=== PATIENT | male | born 1950 ===

== ENCOUNTER 2020-01-15 13:06 | Inpatient (IN) | payer MEDICARE ==
[2020-01-15] MEDS ORDERED: NALOXONE 0.4 MG/ML 1 ML VIAL IV PRN (15:37)
[2020-01-15] MEDS ORDERED: DOCUSATE 100 MG CAP PO PRN (15:37)
[2020-01-15] MEDS ORDERED: traMADol 50 MG TAB PO PRN (15:37)
[2020-01-15] MEDS ORDERED: LORazepam 0.5 MG TAB PO PRN (15:40)
--- NOTE | 2020-01-15 15:59 | XR ---
EXAMINATION TYPE: XR chest 1V portable DATE OF EXAM: 01/15/2020 COMPARISON: NONE HISTORY: chf TECHNIQUE: Single frontal view of the chest is obtained. FINDINGS: Heart is mildly prominent and there is bilateral subsegmental consolidation with tiny effu sions. Mild central interstitial pattern with no pneumothorax. IMPRESSION: Basilar atelectasis or infiltrate correlate clinically. Mild central venous congestion i n the differential diagnosis.
[2020-01-15 16:31] LABS: Basophils % (A) 0 %; Eosinophils # (A) 0.2 k/uL (0-0.7); Eosinophils % (A) 5 %; HGB 13.6 gm/dL (13.0-17.5); Lymphocytes # (A) 0.6 k/uL (1.0-4.8); Lymphocytes % (A) 14 %; MCH 34.7 pg (25.0-35.0); MCV 102.1 fL (80.0-100.0); Macrocytosis Slight; Mean Platelet Volume 8.7; Monocytes # (A) 0.4 k/uL (0-1.0); Monocytes % (A) 10 %; Neutrophils % (A) 69 %; RBC 3.92 m/uL (4.30-5.90); RDW 13.9 % (11.5-15.5); WBC 4.3 k/uL (3.8-10.6)
[2020-01-15 16:37] LABS: Platelet Count 78 k/uL (150-450)
[2020-01-15 16:39] LABS: INR 1.2 (<1.2); Prothrombin Time 12.5 sec (9.0-12.0)
[2020-01-15 16:41] LABS: ALT 25 U/L (4-49); AST 62 U/L (17-59); African American GFR (CKD) >90 (>60 ml/min/1.73 sqM); Alkaline Phosphatase 160 U/L (38-126); Amylase 61 U/L (30-110); Anion Gap 7 mmol/L; Blood Urea Nitrogen 9 mg/dL (9-20); Calcium 8.6 mg/dL (8.4-10.2); Carbon Dioxide 24 mmol/L (22-30); Chloride 105 mmol/L (98-107); Glucose 92 mg/dL (74-99); Non-African American GFR(CKD) >90 (>60 ml/min/1.73 sqM); Phosphorus 3.2 mg/dL (2.5-4.5); Potassium 3.8 mmol/L (3.5-5.1); Sodium 136 mmol/L (137-145); Total Bilirubin 3.3 mg/dL (0.2-1.3); Total Protein 6.4 g/dL (6.3-8.2)
[2020-01-15] MEDS: FUROSEMIDE 10 MG/ML 4 ML VIAL IV SCH ×2 (16:53→23:50)
[2020-01-15] MEDS: SODIUM CHLORIDE 0.9% 1,000 ML IV SCH (16:54)
[2020-01-15] MEDS: NICOTINE 14MG/24HR PATCH TRANSDERM SCH (16:55)
[2020-01-15 17:07] LABS: Glucose,Whole Blood 89 mg/dL (75-99)
[2020-01-15 17:33] LABS: Poikilocytosis (M) Present; Toxic Granulation Present
[2020-01-15 17:49] LABS: Appearance,Urine Clear (Clear); Bilirubin,Urine Negative (Negative); Blood,Urine Negative (Negative); Color,Urine Yellow; Glucose,Urine (UA) Negative (Negative); Ketones,Urine Negative (Negative); Leukocyte Esterase,Urine Negative (Negative); Nitrite,Urine Negative (Negative); PH, Urine 5.5 (5.0-8.0); Protein,Urine Negative (Negative); Specific Gravity,Urine 1.007 (1.001-1.035); Urobilinogen,Urine <2.0 mg/dL (<2.0)
[2020-01-15 17:59] LABS: Amphetamine Screen,Urine Not Detected (NotDetected); Barbiturate Screen,Urine Not Detected (NotDetected); Benzodiazepines Screen,Urine Not Detected (NotDetected); Cocaine Screen,Urine Not Detected (NotDetected); Methadone Screen, Urine Not Detected (NotDetected); Opiate Screen,Urine Not Detected (NotDetected); Oxycodone Screen, Urine Not Detected (NotDetected); Phencyclidine Screen,Urine Not Detected (NotDetected); Tricyclic Antidepressant,Urine Not Detected (NotDetected); Urn Cannabinoid Scrn Not Detected (NotDetected)
--- NOTE | 2020-01-15 18:36 | HP ---
HISTORY AND PHYSICAL DATE OF SERVICE: 01/15/2020 CHIEF COMPLAINTS: Bilateral leg swelling, abdominal distention and scrotal swelling. HISTORY OF PRESENT ILLNESS: This 69-year-old gentleman with a past medical history of multiple medical problems, including diabetes, hypertension, history of apparent chronic liver disease, history of DVT, is being followed by Victoriano Kincaid in the [facility]. He was noted to have abdominal swelling, scrotal swelling and bilateral leg swelling for the last several months on and off. Because of difficulties, the patient presented to [facility] today. The patient was also complaining of some cough and shortness of breath. The patient underwent evaluation, including CT scan of the chest and CT scan of the abdomen and pelvis. CT scan of the chest showed only small pleural effusions, but CT abdomen showed significant ascites as well as nodular liver suggestive of chronic liver disease along with splenomegaly and cholelithiasis. There is no history of any fever, rigor or chills. No history of headache, loss of consciousness, seizures. Patient reports taking excessive quantities of beer previously, but currently not much, according to him. There is no history of any fever, rigor or chills at this time. PAST MEDICAL HISTORY: History of diabetes mellitus, hypertension, history of DVT. HOME MEDICATIONS: 1. Lisinopril 20 mg p.o. daily. 2. Metformin 1000 mg p.o. daily. ALLERGIES: NONE. FAMILY HISTORY: No history of heart disease or strokes in the family. SOCIAL HISTORY: History of alcohol, as mentioned earlier. Smokes about one cigar per day. REVIEW OF SYSTEMS: ENT: No diminished hearing. No diminished vision. CARDIOVASCULAR SYSTEM: No angina, palpitations. RESPIRATORY SYSTEM: As mentioned earlier. GI: As mentioned earlier. : No dysuria or retention. NERVOUS SYSTEM: No numbness, weakness. ALLERGY/IMMUNOLOGY: No asthma, hayfever. MUSCULOSKELETAL: As mentioned earlier. HEMATOLOGY/ONCOLOGY: No history of anemia. ENDOCRINE: As mentioned earlier. CONSTITUTIONAL: As mentioned earlier. DERMATOLOGY: Negative. RHEUMATOLOGY: Negative. PSYCHIATRY: Negative. PHYSICAL EXAMINATION: Patient is alert, oriented x3. The pulse is 87, blood pressure 167/69, respiration 22, temperature normal, pulse ox normal. HEENT: Conjunctivae pale. Oral mucosa moist. NECK: Jugular venous distention at the root of the neck. No thyroid enlargement. No lymph node enlargement. CARDIOVASCULAR SYSTEM: S1, S2 muffled. No S3. No S4. RESPIRATORY SYSTEM: Breath sounds diminished at the bases. A few scattered rhonchi. No crackles. ABDOMEN: Tense, distended. Umbilicus everted. Significant ascites present. Significant scrotal edema as well as some early cellulitis and erythema also present. Some minimal tenderness. EXTREMITIES: Bilateral leg cellulitis and edema also present. NERVOUS SYSTEM: Higher functions as mentioned earlier. Moves all 4 limbs. No focal motor or sensory deficit. LYMPHATICS: No lymph node palpable in neck, axillae or groin. SKIN: No ulcer, rash, bleeding. JOINTS: No active deforming arthropathy. LABS: Labs done in [place] showed hemoglobin of 13.8 and platelets of 61, indicating thrombocytopenia. Sodium is 139, potassium 3.8. CO2 is 20. Anion gap is 11. Albumin is 2.9, alkaline phosphatase 150, AST 26, AST is 52. BUN is 80. Calcium is 8.8. Creatinine 0.6 and glucose 124. Total protein was 6. Globin was 3.1. Total bilirubin 3. ASSESSMENT: 1. Significant ascites and massive scrotal edema, possibly secondary to chronic liver disease and cirrhosis of the liver. 2. Possible chronic alcoholic liver disease; rule out other etiology of cirrhosis of the liver. 3. Thrombocytopenia. 4. Hypoalbuminemia with mild to moderate protein-calorie malnutrition. 5. Diabetes mellitus, type 2. 6. Hypertension. 7. History of nicotine dependence. 8. History of ETOH. 9. Increased total bilirubin; possibly mild alcoholic hepatitis. RECOMMENDATIONS AND DISCUSSION: In this 69-year-old gentleman who presented with multiple complex medical issues, at this time I recommend to continue current medications. I would institute diuretic therapy with Lasix and Aldactone on empiric basis. Gastroenterology consultation. The patient was previously told one time about chronic liver disease, but subsequently he was also told that his liver was normal. I would recommend liver biopsy down the line if there is any diagnostic uncertainty. Otherwise, monitor blood sugars closely. Resume the home medications. Monitor blood pressure closely. I would also recommend empiric antibiotics because of the possibility of mild scrotal cellulitis at this time. Overall prognosis guarded. Elevate the scrotum. Limit fluid intake to 1200 mL per 24 hours. Prognosis guarded because of multiple complex medical issues. Further recommendations to follow. I would also order a hepatitis panel. A copy of this dictation is being forwarded to Dr. Victoriano Kincaid, who is the primary physician. MMODL / IJN: [id number] /
[2020-01-15 19:43] LABS: Glucose,Whole Blood 142 mg/dL (75-99)
[2020-01-15] MEDS: SPIRONOLACTONE 25 MG TAB PO SCH (20:05)
[2020-01-16 01:18] LABS: Hepatitis A Antibody IgM Non-Reactive (Non-Reactive); Hepatitis B Core IgM Non-Reactive (Non-Reactive); Hepatitis B Surface Antigen Non-Reactive (Non-Reactive); Hepatitis C IgG Antibody Non-Reactive (Non-Reactive)
[2020-01-16 07:04] LABS: Glucose,Whole Blood 79 mg/dL (75-99)
[2020-01-16 08:10] LABS: Basophils % (A) 0 %; Eosinophils # (A) 0.2 k/uL (0-0.7); Eosinophils % (A) 4 %; HCT 35.3 % (39.0-53.0); HGB 12.1 gm/dL (13.0-17.5); Lymphocytes # (A) 0.5 k/uL (1.0-4.8); Lymphocytes % (A) 16 %; MCHC 34.2 g/dL (31.0-37.0); MCV 102.5 fL (80.0-100.0); Macrocytosis Slight; Mean Platelet Volume 7.2; Monocytes # (A) 0.4 k/uL (0-1.0); Monocytes % (A) 11 %; Neutrophils # (A) 2.3 k/uL (1.3-7.7); Neutrophils % (A) 67 %; RBC 3.45 m/uL (4.30-5.90); RDW 13.9 % (11.5-15.5); WBC 3.5 k/uL (3.8-10.6)
[2020-01-16 08:18] LABS: ALT 20 U/L (4-49); AST 52 U/L (17-59); African American GFR (CKD) >90 (>60 ml/min/1.73 sqM); Albumin 2.3 g/dL (3.5-5.0); Alkaline Phosphatase 121 U/L (38-126); Anion Gap 5 mmol/L; Blood Urea Nitrogen 11 mg/dL (9-20); Calcium 8.1 mg/dL (8.4-10.2); Carbon Dioxide 23 mmol/L (22-30); Chloride 107 mmol/L (98-107); Glucose 78 mg/dL (74-99); Non-African American GFR(CKD) >90 (>60 ml/min/1.73 sqM); Potassium 3.6 mmol/L (3.5-5.1); Sodium 135 mmol/L (137-145); Total Bilirubin 2.8 mg/dL (0.2-1.3); Total Protein 5.1 g/dL (6.3-8.2)
[2020-01-16 08:19] LABS: Platelet Count 61 k/uL (150-450)
[2020-01-16] MEDS: SPIRONOLACTONE 25 MG TAB PO SCH ×2 (08:31→21:13)
[2020-01-16] MEDS: PANTOPRAZOLE 40 MG TABLET PO SCH (08:31)
[2020-01-16] MEDS: MULTIVITAMINS, THERA 1 EACH TAB PO SCH (08:31)
[2020-01-16] MEDS: FUROSEMIDE 10 MG/ML 4 ML VIAL IV SCH ×2 (08:32→17:47)
[2020-01-16] MEDS: THIAMINE 100 MG TAB PO SCH (08:33)
[2020-01-16] MEDS: NICOTINE 14MG/24HR PATCH TRANSDERM SCH (08:33)
[2020-01-16] MEDS: FOLIC ACID 1 MG TAB PO SCH (08:33)
[2020-01-16 12:53] LABS: Glucose,Whole Blood 109 mg/dL (75-99)
--- NOTE | 2020-01-16 14:16 | US ---
Therapeutic and diagnostic paracentesis. DATE OF EXAM: 01/16/2020 CLINICAL HISTORY: Ascites The procedure was discussed with the patient. The risks, complications, benefits, and alternatives we re discussed and any questions were answered. Informed consent was obtained. The patient was placed s upine on the ultrasound table and prepped and draped in the usual sterile fashion. All elements of maximal barrier technique were utilized. Under ultrasound guidance, access into the right lower quadrant was obtained, via the paracentesis catheter system and direct ultrasound guidanc e. Approximately 7.1 liters of straw-colored fluid was removed. Sample sent to pathology for analysis Th e patient was stable throughout the procedure and remained stable upon discharge from Department of R adiology. IMPRESSION: Successful paracentesis under ultrasound guidance.
[2020-01-16] MEDS: SODIUM CHLORIDE 0.9% 1,000 ML IV SCH (16:32)
[2020-01-16 16:57] LABS: Glucose,Whole Blood 126 mg/dL (75-99)
--- NOTE | 2020-01-16 17:47 | PN ---
PROGRESS NOTE DATE OF SERVICE: 01/16/2020 This 69-year-old gentleman admitted with massive ascites and massive scrotal edema with significant cellulitis underwent abdominal paracentesis by Interventional Radiology yesterday; 7.1 L of straw-colored fluid was removed. The patient still has abdominal distention and ascites; slightly feeling better. Cytology is pending at this time. The initial fluid evaluations are not available at this time. The sodium is 135, hemoglobin 12.1, platelets 61, MCV 102.1. Past medical history reviewed. REVIEW OF SYSTEMS: CARDIOVASCULAR SYSTEM: No angina, palpitations. RESPIRATORY SYSTEM: As mentioned earlier. GI: As mentioned earlier. : No dysuria or retention. NERVOUS SYSTEM: No numbness, weakness. CURRENT MEDICATIONS: Reviewed. They include: 1. Rocephin 1 gram daily. 2. Colace 100 mg p.o. b.i.d. 3. Folic acid 1 mg daily. 4. Lasix 40 mg IV q.8. 5. Ativan 0.5 mg q.8. 6. Multivitamins. 7. Narcan 0.2 q.2 p.r.n. 8. Habitrol 14 daily. 9. Protonix 40 mg b.i.d. 10.Aldactone 50 mg p.o. b.i.d. 11.Vitamin B1 100 mg daily. 12.Ultram 50 mg q.6 p.r.n. PHYSICAL EXAMINATION: Patient is alert, oriented x3. Pulse 75, blood pressure 126/57, respirations 20, temperature 97.3, pulse ox 99% on room air. HEENT: Conjunctivae normal. NECK: No jugular venous distention. CARDIOVASCULAR SYSTEM: S1, S2 muffled. RESPIRATORY SYSTEM: Breath sounds diminished at the bases. A few scattered rhonchi and crackles. ABDOMEN: Soft. Diffuse swelling and ascites present. Diffuse scrotal swelling and massive scrotal edema with some surrounding redness and cellulitis also present. LEGS: Bilateral leg edema and some chronic changes also present, pitting. NERVOUS SYSTEM: No focal deficit. LABS: WBC 3.5, hemoglobin 12.1, platelets 61. Sodium 135. Bilirubin is 2.8. AST was 62 and alkaline phosphatase 160. UA noted. Hepatitis panel is negative. Drug screen is also negative. ASSESSMENT: 1. Massive ascites and massive scrotal edema, possibly secondary to chronic liver disease and cirrhosis of the liver. 2. Status post abdominal paracentesis with 7.1 liters of straw-colored fluid. 3. Possible chronic alcoholic liver disease; rule out other etiologies of cirrhosis of the liver. 4. Thrombocytopenia. 5. Mild pancytopenia, possibly related to cirrhosis. 6. Hypoalbuminemia with mild to moderate protein-calorie malnutrition. 7. Diabetes mellitus, type 2. 8. Hypertension. 9. History of nicotine dependence. 10.History of ETOH. 11.Increased total bilirubin, possibly mild alcoholic hepatitis. 12.FULL CODE. 13.Possible bilateral leg cellulitis. RECOMMENDATIONS AND DISCUSSION: In this 69-year-old gentleman who presented with multiple complex medical issues, we will monitor the patient closely, continue the current medications, continue with symptomatic treatment. Will continue with the diuresis. The intake/output charting is not available at this time. Weight-luther, the patient apparently is weighing 91.4 kg. Otherwise, prognosis is guarded because of multiple complex medical problems. Further recommendations to follow. We will also check the ascitic fluid cytology as well. See orders for details. Gastroenterology evaluation ongoing. Guarded prognosis. MMODL / IJN: [id number] /
[2020-01-16 18:11] LABS: Appearance,BF Clear; Color,BF Yellow; Nucleated Cells, Body Fluid 12 /uL; RBC, Body Fluid 121 /uL
[2020-01-16 20:03] LABS: Glucose,Whole Blood 145 mg/dL (75-99)
--- NOTE | 2020-01-16 20:46 | P.CONS ---
History of Present Illness - Reason for Consult Consult date: 01/16/20 Decompensated alcohol cirrhosis Requesting physician: Yomi Marinelli - Chief Complaint Abdominal distention - History of Present Illness 69-year-old male with a medical history significant for prior alcohol abuse, diabetes mellitus and recent diagnosis of alcoholic cirrhosis who initially presented to the hospital due to shortness of breath and abdominal distention. The patient reports increasing abdominal distention and lower extremity swelling over the past 6 months. Previously in the remote past he had been told approximately 20 years ago of possible liver disease however he had no follow-up after that. He denies any other signs or symptoms of decompensated liver disease with no encephalopathy or GI bleed and has not required paracentesis in the past. He reports increasing swelling of both his legs and abdomen. Patient has a long-standing history of heavy alcohol use with 6 beers daily for over 20 years but reports that since retiring history last. No prior endoscopic evaluation with EGD or colonoscopy. Laboratory evaluation on presentation was significant for WBC 3.5, hemoglobin 12, platelet count 61,000, INR 1.2, total bilirubin 2.8, alkaline phosphatase 121,000, AST 52 and ALT 20. Patient is status post paracentesis today with over 7 L removed. Review of Systems REVIEW OF SYSTEMS: CONSTITUTIONAL: Denies any fevers, chills, weight change or fatigue. CARDIOVASCULAR: Denies any chest pain, palpitations high or low blood pressures RESPIRATORY: Denies any shortness of breath, hemoptysis or cough. GENITOURINARY: No dysuria or hematuria. MUSCULOSKELETAL: No weakness reported. SKIN: Denies any new rashes or lesions, jaundice or pallor. PSYCHIATRIC: Denies any depression or anxiety. NEUROLOGY: Denies headache, denies any new focal deficits. EARS/NOSE/THROAT: No recent hearing change, congestion, nasal discharge or sore throat. EYES: No pain in eyes, discharge or change in vision. GASTROINTESTINAL: As per HPI. Past Medical History Past Medical History: Diabetes Mellitus, Liver Disease Additional Past Medical History / Comment(s): Hx. of bilateral lower extremity DVT. Patient was previously on Coumadin, however patient was told to stop taking Coumadin r/t low platelet count. Coumadin stopped in 2016. History of Any Multi-Drug Resistant Organisms: None Reported Past Anesthesia/Blood Transfusion Reactions: No Reported Reaction Past Psychological History: No Psychological Hx Reported Smoking Status: Never smoker Past Drug Use History: None Reported - Past Family History Mother Additional Family Medical History / Comment(s): Patient states that he was adopted and does not know any history on biological family. Medications and Allergies Home Medications Medication Instructions Recorded Confirmed Type Lisinopril 20 mg PO DAILY 01/15/20 01/15/20 History metFORMIN HCL 1,000 mg PO DAILY 01/15/20 01/15/20 History Allergies Allergy/AdvReac Type Severity Reaction Status Date / Time No Known Allergies Allergy Verified 01/15/20 16:12 Physical Exam Vitals: Vital Signs Temp Pulse Pulse Resp BP BP Pulse Ox 01/16/20 16:00 17 01/16/20 14:30 75 126/57 01/16/20 14:00 76 123/51 01/16/20 13:30 73 133/61 01/16/20 13:15 78 139/53 01/16/20 13:00 77 141/62 01/16/20 12:45 97.3 F L 70 17 162/64 99 01/16/20 12:15 75 18 154/77 98 01/16/20 12:10 76 16 156/77 98 01/16/20 12:00 74 20 148/65 97 01/16/20 11:50 71 20 139/58 96 01/16/20 11:40 72 18 150/78 97 01/16/20 11:20 81 20 157/65 96 01/16/20 11:10 77 18 158/66 96 01/16/20 11:00 82 18 158/65 95 01/16/20 10:51 80 18 160/71 97 01/16/20 10:42 97.9 F 79 20 162/68 96 01/16/20 07:00 98 F 80 22 147/68 95 01/16/20 05:00 98.4 F 91 18 131/64 93 L 01/16/20 00:00 78 18 01/15/20 21:00 97.3 F L 80 18 173/69 96 Intake and Output 01/16/20 01/16/20 01/16/20 06:59 14:59 22:59 Intake Total 0 450 Balance 0 450 Intake: Intake, IV Titration 50 Amount cefTRIAXone 1 gm In 50 Sodium Chloride 0.9% 50 ml @ 100 mls/hr IVPB Q24HR [facility] Rx#:[id number] Oral 0 400 Other: Voiding Method Toilet Toilet Urinal Urinal Weight 91.4 kg On physical examination, patient appears comfortable in no apparent distress. HEAD: Normocephalic, atraumatic. EYES: No scleral icterus. No conjunctival injection. MOUTH: No lesions, tongue midline. NECK: Trachea midline, no gross abnormalities. CHEST: Clear to auscultation with no wheezing or rhonchi appreciated. HEART: Regular rate and rhythm. ABDOMEN: Soft, obese and mildly distended. Bowel sounds are positive. No organomegaly. No guarding or rigidity. EXTREMITIES: No pedal edema. SKIN: No rashes, no jaundice. NEUROLOGIC: Alert and oriented x3, no asterixis noted. No focal deficits. Results CBC & Chem 7: 01/16/20 07:31 01/16/20 07:31 Labs: Abnormal Lab Results - Last 24 Hours (Table) 01/16/20 01/16/20 01/16/20 Range/Units 07:31 07:31 12:51 WBC 3.5 L (3.8-10.6) k/uL RBC 3.45 L (4.30-5.90) m/uL Hgb 12.1 L (13.0-17.5) gm/dL Hct 35.3 L (39.0-53.0) % MCV 102.5 H (80.0-100.0) fL Plt Count 61 L (150-450) k/uL Lymphocytes # 0.5 L (1.0-4.8) k/uL Sodium 135 L (137-145) mmol/L Creatinine 0.60 L (0.66-1.25) mg/dL POC Glucose (mg/dL) 109 H (75-99) mg/dL Calcium 8.1 L (8.4-10.2) mg/dL Total Bilirubin 2.8 H (0.2-1.3) mg/dL Total Protein 5.1 L (6.3-8.2) g/dL Albumin 2.3 L (3.5-5.0) g/dL 01/16/20 01/16/20 Range/Units 16:56 20:02 WBC (3.8-10.6) k/uL RBC (4.30-5.90) m/uL Hgb (13.0-17.5) gm/dL Hct (39.0-53.0) % MCV (80.0-100.0) fL Plt Count (150-450) k/uL Lymphocytes # (1.0-4.8) k/uL Sodium (137-145) mmol/L Creatinine (0.66-1.25) mg/dL POC Glucose (mg/dL) 126 H 145 H (75-99) mg/dL Calcium (8.4-10.2) mg/dL Total Bilirubin (0.2-1.3) mg/dL Total Protein (6.3-8.2) g/dL Albumin (3.5-5.0) g/dL Microbiology - Last 24 Hours (Table) 01/16/20 10:51 Body Fluid Culture - Preliminary Paracentesis Fluid 01/16/20 10:51 Anaerobic Culture - Preliminary Paracentesis Fluid US - abdomen: report reviewed (Ultrasound of the abdomen with over 7 L of ascites removed) Assessment and Plan (1) Decompensated hepatic cirrhosis Narrative/Plan: 69-year-old male with decompensated cirrhosis of liver secondary to alcohol abuse presenting with shortness of breath and abdominal swelling found to have ascites. He is status post removal of centimeters of a ascitic fluid. Patient denies any episodes of encephalopathy or GI bleed in the past. Fluid overload has been worsening over the past 6 months. Current Visit: Yes Status: Acute Code(s): K72.90 - HEPATIC FAILURE, UNSPECIFIED WITHOUT COMA SNOMED Code(s): 531500224 (2) Ascites of liver Current Visit: Yes Status: Acute Code(s): R18.8 - OTHER ASCITES SNOMED Code(s): 688266384 Plan: Supportive care Sodium restricted diet Aldactone and Lasix initiated Paracentesis performed with over 7 L of ascites removed and fluid studies are pending Alcohol abstinence AFP ordered Continue to monitor CBC, CMP Patient will need close follow-up after discharge for continued management Thank you for allowing us to follow with you, and participate in the care of the patient
[2020-01-16 22:08] LABS: Amylase, Fluid Source Paracentesis Fluid; Total Protein, Body Fluid 970 mg/dL
[2020-01-17] MEDS: FUROSEMIDE 10 MG/ML 4 ML VIAL IV SCH ×4 (01:18→23:02)
[2020-01-17 07:10] LABS: Glucose,Whole Blood 85 mg/dL (75-99)
[2020-01-17] MEDS: PANTOPRAZOLE 40 MG TABLET PO SCH (08:30)
[2020-01-17] MEDS: FOLIC ACID 1 MG TAB PO SCH (08:30)
[2020-01-17] MEDS: MULTIVITAMINS, THERA 1 EACH TAB PO SCH (08:30)
[2020-01-17] MEDS: LISINOPRIL 20 MG TAB PO SCH (08:30)
[2020-01-17] MEDS: THIAMINE 100 MG TAB PO SCH (08:30)
[2020-01-17] MEDS: SPIRONOLACTONE 25 MG TAB PO SCH ×2 (08:30→20:36)
[2020-01-17] MEDS: metFORMIN 500 MG TAB PO SCH (08:30)
[2020-01-17 08:38] LABS: Basophils % (A) 1 %; Eosinophils # (A) 0.1 k/uL (0-0.7); Eosinophils % (A) 4 %; HCT 36.3 % (39.0-53.0); HGB 12.3 gm/dL (13.0-17.5); Lymphocytes # (A) 0.6 k/uL (1.0-4.8); Lymphocytes % (A) 17 %; MCH 34.4 pg (25.0-35.0); MCHC 33.9 g/dL (31.0-37.0); MCV 101.6 fL (80.0-100.0); Macrocytosis Slight; Mean Platelet Volume 7.9; Monocytes # (A) 0.3 k/uL (0-1.0); Monocytes % (A) 8 %; Neutrophils # (A) 2.2 k/uL (1.3-7.7); Neutrophils % (A) 67 %; RBC 3.57 m/uL (4.30-5.90); RDW 13.8 % (11.5-15.5); WBC 3.2 k/uL (3.8-10.6)
[2020-01-17 08:40] LABS: Platelet Count 73 k/uL (150-450)
[2020-01-17 08:55] LABS: ALT 19 U/L (4-49); AST 49 U/L (17-59); African American GFR (CKD) >90 (>60 ml/min/1.73 sqM); Albumin 2.2 g/dL (3.5-5.0); Alkaline Phosphatase 116 U/L (38-126); Anion Gap 5 mmol/L; Blood Urea Nitrogen 14 mg/dL (9-20); Carbon Dioxide 24 mmol/L (22-30); Chloride 107 mmol/L (98-107); Glucose 109 mg/dL (74-99); Non-African American GFR(CKD) >90 (>60 ml/min/1.73 sqM); Potassium 3.6 mmol/L (3.5-5.1); Sodium 136 mmol/L (137-145); Total Bilirubin 2.4 mg/dL (0.2-1.3); Total Protein 5.1 g/dL (6.3-8.2)
[2020-01-17 11:19] LABS: Glucose,Whole Blood 122 mg/dL (75-99)
[2020-01-17 11:58] VITALS: RESP 17
--- NOTE | 2020-01-17 13:58 | CDI ---
Documentation Clarification Form Date: 01/17/2020 01:39:46 PM From: Malina MonteROBERTO sinha, CCDS Admit Date: 01/15/2020 03:20:00 PM Patient Name: Saul Rivera Visit Number: [id number] Discharge Date: ATTENTION: The Clinical Documentation Specialists (CDI) and [facility] Coding Staff appreciate your assistance in clarifying documentation. Please respond to the clarification below the line at the bottom and electronically sign. The CDI & [facility] Coding staff will review the response and follow-up if needed. Please note: Queries are made part of the Legal Health Record. If you have any questions, please contact the author of this message via ITS. Dr. Yomi Marinelli: Malnutrition has been documented in the Attending Progress Notes on 01/14 & 01/15 as "Hypoalbuminemia with mild to moderate protein-calorie malnutrition." History/Risk Factors: History of alcoholism, chronic liver disease (cirrhosis), DM II, DVT & Hypertension. Clinical Indicators: Presented from [facility] on 01/14 with abdominal swelling, scrotal swelling & bilateral leg swelling (for several months). Also complained of a cough & SOB. Found to have a small pleural effusion & significant ascites & nodular liver suggestive of chronic liver disease, splenomegaly & cholelithiasis; cellulitis bilateral legs & scrotum. Admission Labs: Pl Ct 78*, Na 136*, Glucose 142^, Total Bili 3.3^, AST 62^, Alk Phos 160^, Total Protein (6.4), Albumin 3.0*. BMI on admission (01/14): 29.2 No Dietitian consult this admission. Nursing physical assessment: Eating 75-100% meals, Ht 5 ft 9 in, Wt: 89.7 kg. Per the GI Consult 01/15: no weight change. Treatment: Heart healthy diet, Anaerobic wound cultures, Paracentesis, IV Rocephin, IV Lasix, Na restricted diet. In your professional opinion, can you please clarify if these findings signify one of the following conditions? Mild Protein-Calorie Malnutrition Moderate Protein-Calorie Malnutrition Other, please specify Unable to determine (Last Revision: May 2019) None MTDD
--- NOTE | 2020-01-17 15:18 | P.PN ---
Subjective Progress Note Date: 01/17/20 Principal diagnosis: This is a 69-year-old male who was recently admitted with massive ascites and massive scrotal edema with significant cellulitis and is being closely monitored. Patient underwent paracentesis yesterday with removal of approximately 7.1 L of fluid. Patient continues to have significant abdominal distention along with extreme scrotal swelling. Patient states that he feels slightly better and will need to follow-up closely with GI in the outpatient setting. GI is following. Also discussed at length about refraining from alcohol use. Instructed nursing staff to elevate the scrotum to help minimize the swelling. He shouldn't is maintained on 40 mg of IV Lasix every 8 hours and will continue at this time. Will monitor vital signs and labs closely. Current creatinine is 0.65. Currently no reports of chest pain, shortness of breath, or palpitations. Patient is afebrile. No reports of nausea or vomiting and patient is tolerating diet. Fluid cultures from paracentesis thus far negative. Patient will continue with IV Rocephin at this time. Objective - Vital Signs Vital signs: Vital Signs Temp 98.1 F 01/17/20 11:58 Pulse 71 01/17/20 11:58 Resp 17 01/17/20 11:58 BP 107/56 01/17/20 11:58 Pulse Ox 97 01/17/20 11:58 Intake & Output 01/16/20 01/17/20 01/17/20 18:59 06:59 18:59 Intake Total 450 0 530 Balance 450 0 530 Weight 91.4 kg 89.7 kg Intake: Intake, IV Titration 50 50 Amount cefTRIAXone 1 gm In 50 50 Sodium Chloride 0.9% 50 ml @ 100 mls/hr IVPB Q24HR [facility] Rx#:[id number] Oral 400 0 480 Other: Voiding Method Toilet Toilet Toilet Urinal Urinal Urinal # Voids 4 2 - Exam Gen: This is a 69-year-old male lying in bed, awake, alert and oriented 3, well-developed, well-nourished. Temp is 98.1F, pulse is 71, respirations are 17, blood pressure is 107/56, oxygen saturation is 97% on room air. HEENT: Head is atraumatic, normocephalic. Pupils equal, round. Sclerae is anicteric. NECK: Supple. No JVD. No lymphadenopathy. No thyromegaly. LUNGS: Diminished breath sounds at the bases with a few scattered rhonchi noted. No intercostal retractions. HEART: S1, S2 are muffled. ABDOMEN: Soft. Moderate distention noted. Right-sided paracentesis dressing noted that is dry and intact. Bowel sounds are present. No masses. No tend erness. Massive scrotal edema noted with some surrounding redness and cellulitis also present. EXTREMITIES: Bilateral lower extremity swelling with chronic changes present with +1 pitting edema noted. No calf tenderness. NEUROLOGICAL: Patient is awake, alert and oriented x3. Cranial nerves 2 through 12 are grossly intact. - Labs CBC & Chem 7: 01/17/20 08:17 01/17/20 08:17 Labs: Abnormal Lab Results - Last 24 Hours (Table) 01/16/20 01/16/20 01/17/20 Range/Units 16:56 20:02 08:17 WBC 3.2 L (3.8-10.6) k/uL RBC 3.57 L (4.30-5.90) m/uL Hgb 12.3 L (13.0-17.5) gm/dL Hct 36.3 L (39.0-53.0) % MCV 101.6 H (80.0-100.0) fL Plt Count 73 L (150-450) k/uL Lymphocytes # 0.6 L (1.0-4.8) k/uL Sodium (137-145) mmol/L Creatinine (0.66-1.25) mg/dL Glucose (74-99) mg/dL POC Glucose (mg/dL) 126 H 145 H (75-99) mg/dL Calcium (8.4-10.2) mg/dL Total Bilirubin (0.2-1.3) mg/dL Ammonia (<30) umol/L Total Protein (6.3-8.2) g/dL Albumin (3.5-5.0) g/dL 01/17/20 01/17/20 01/17/20 Range/Units 08:17 08:17 11:18 WBC (3.8-10.6) k/uL RBC (4.30-5.90) m/uL Hgb (13.0-17.5) gm/dL Hct (39.0-53.0) % MCV (80.0-100.0) fL Plt Count (150-450) k/uL Lymphocytes # (1.0-4.8) k/uL Sodium 136 L (137-145) mmol/L Creatinine 0.65 L (0.66-1.25) mg/dL Glucose 109 H (74-99) mg/dL POC Glucose (mg/dL) 122 H (75-99) mg/dL Calcium 8.0 L (8.4-10.2) mg/dL Total Bilirubin 2.4 H (0.2-1.3) mg/dL Ammonia 49 H (<30) umol/L Total Protein 5.1 L (6.3-8.2) g/dL Albumin 2.2 L (3.5-5.0) g/dL Microbiology - Last 24 Hours (Table) 01/16/20 10:51 Gram Stain - Preliminary Paracentesis Fluid Body Fluid Culture - Preliminary 01/16/20 10:51 Anaerobic Culture - Preliminary Paracentesis Fluid Assessment and Plan Assessment: Massive ascites and massive scrotal edema, possibly secondary to chronic liver disease and cirrhosis of the liver Status post abdominal paracentesis with 7.1 L of straw-colored fluid Possible chronic alcoholic liver disease, rule out other etiologies of cirrhosis of the liver Thrombocytopenia Mild pancytopenia, possibly related to cirrhosis Hypoalbuminemia with mild protein calorie malnutrition Diabetes mellitus, type II Hypertension History of nicotine dependence next line history of EtOH Increased total bilirubin, possibly mild alcoholic hepatitis Full code Possible bilateral leg cellulitis Recommendations and discussion: Recommend to continue current medications, management, and symptomatic treatment. To continue to elevate the scrotum to help minimize swelling. Patient to continue with IV Lasix diuresis at this time. Patient is maintained on IV Rocephin and will continue at this time. Fluid cultures thus far remain negative. Due to multiple complex medical issues, prognosis is guarded. Further recommendations to follow. Possible discharge in 24-48 hours.
[2020-01-17] MEDS: SODIUM CHLORIDE 0.9% 1,000 ML IV SCH (16:54)
[2020-01-17 17:16] LABS: Glucose,Whole Blood 126 mg/dL (75-99)
[2020-01-17 20:05] LABS: Glucose,Whole Blood 132 mg/dL (75-99)
[2020-01-18 04:54] VITALS: PULSE 71; TEMP 98
[2020-01-18] MEDS: LISINOPRIL 20 MG TAB PO SCH (09:05)
[2020-01-18] MEDS: FUROSEMIDE 10 MG/ML 4 ML VIAL IV SCH (09:05)
[2020-01-18] MEDS: metFORMIN 500 MG TAB PO SCH (09:05)
[2020-01-18] MEDS: SPIRONOLACTONE 25 MG TAB PO SCH (09:05)
[2020-01-18] MEDS: PANTOPRAZOLE 40 MG TABLET PO SCH (09:06)
[2020-01-18 09:07] VITALS: BP 128/71
[2020-01-18 09:17] LABS: Basophils % (A) 0 %; Eosinophils # (A) 0.1 k/uL (0-0.7); Eosinophils % (A) 5 %; HCT 34.5 % (39.0-53.0); HGB 11.8 gm/dL (13.0-17.5); Lymphocytes # (A) 0.4 k/uL (1.0-4.8); Lymphocytes % (A) 16 %; MCH 35.6 pg (25.0-35.0); MCHC 34.4 g/dL (31.0-37.0); MCV 103.4 fL (80.0-100.0); Macrocytosis Slight; Mean Platelet Volume 8.2; Monocytes # (A) 0.3 k/uL (0-1.0); Monocytes % (A) 10 %; Neutrophils # (A) 1.9 k/uL (1.3-7.7); Neutrophils % (A) 67 %; RBC 3.33 m/uL (4.30-5.90); WBC 2.8 k/uL (3.8-10.6)
[2020-01-18 09:23] LABS: ALT 18 U/L (4-49); AST 49 U/L (17-59); African American GFR (CKD) >90 (>60 ml/min/1.73 sqM); Albumin 2.2 g/dL (3.5-5.0); Alkaline Phosphatase 99 U/L (38-126); Anion Gap 5 mmol/L; Blood Urea Nitrogen 17 mg/dL (9-20); Calcium 7.8 mg/dL (8.4-10.2); Carbon Dioxide 27 mmol/L (22-30); Chloride 104 mmol/L (98-107); Glucose 172 mg/dL (74-99); Non-African American GFR(CKD) >90 (>60 ml/min/1.73 sqM); Potassium 3.4 mmol/L (3.5-5.1); Sodium 136 mmol/L (137-145)
[2020-01-18 09:24] LABS: Platelet Count 57 k/uL (150-450)
[2020-01-18] MEDS ORDERED: POTASSIUM CHLORIDE ER 20 MEQ TAB.ER PO STA (10:22)
[2020-01-18] MEDS: MULTIVITAMINS, THERA 1 EACH TAB PO SCH (12:26)
[2020-01-18] MEDS: FOLIC ACID 1 MG TAB PO SCH (12:26)
[2020-01-18] MEDS: THIAMINE 100 MG TAB PO SCH (12:26)
--- NOTE | 2020-01-18 14:39 | P.PN ---
Subjective Progress Note Date: 01/17/20 Principal diagnosis: Decompensated alcoholic cirrhosis Overall patient feeling better. Tolerating diet. No nausea or vomiting. No change in bowel habits. Objective - Vital Signs Vital signs: Vital Signs Temp 98.1 F 01/17/20 11:58 Pulse 71 01/17/20 11:58 Resp 17 01/17/20 11:58 BP 107/56 01/17/20 11:58 Pulse Ox 97 01/17/20 11:58 Intake & Output 01/16/20 01/17/20 01/17/20 18:59 06:59 18:59 Intake Total 450 0 530 Balance 450 0 530 Weight 91.4 kg 89.7 kg Intake: Intake, IV Titration 50 50 Amount cefTRIAXone 1 gm In 50 50 Sodium Chloride 0.9% 50 ml @ 100 mls/hr IVPB Q24HR FORMERLY [facility], 1928–1983 Rx#:[id number] Oral 400 0 480 Other: Voiding Method Toilet Toilet Toilet Urinal Urinal Urinal # Voids 4 2 - Exam On physical examination, patient appears comfortable in no apparent distress. HEAD: Normocephalic, atraumatic. EYES: No scleral icterus. No conjunctival injection. MOUTH: No lesions, tongue midline. NECK: Trachea midline, no gross abnormalities. ABDOMEN: Soft, mildly distended. Bowel sounds are positive. No organomegaly. No guarding or rigidity. EXTREMITIES: No pedal edema. SKIN: No rashes, no jaundice. NEUROLOGIC: Alert and oriented x3. No focal deficits. - Labs CBC & Chem 7: 01/18/20 08:45 01/18/20 08:45 Labs: Abnormal Lab Results - Last 24 Hours (Table) 01/16/20 01/16/20 01/17/20 Range/Units 16:56 20:02 08:17 WBC 3.2 L (3.8-10.6) k/uL RBC 3.57 L (4.30-5.90) m/uL Hgb 12.3 L (13.0-17.5) gm/dL Hct 36.3 L (39.0-53.0) % MCV 101.6 H (80.0-100.0) fL Plt Count 73 L (150-450) k/uL Lymphocytes # 0.6 L (1.0-4.8) k/uL Sodium (137-145) mmol/L Creatinine (0.66-1.25) mg/dL Glucose (74-99) mg/dL POC Glucose (mg/dL) 126 H 145 H (75-99) mg/dL Calcium (8.4-10.2) mg/dL Total Bilirubin (0.2-1.3) mg/dL Ammonia (<30) umol/L Total Protein (6.3-8.2) g/dL Albumin (3.5-5.0) g/dL 01/17/20 01/17/20 01/17/20 Range/Units 08:17 08:17 11:18 WBC (3.8-10.6) k/uL RBC (4.30-5.90) m/uL Hgb (13.0-17.5) gm/dL Hct (39.0-53.0) % MCV (80.0-100.0) fL Plt Count (150-450) k/uL Lymphocytes # (1.0-4.8) k/uL Sodium 136 L (137-145) mmol/L Creatinine 0.65 L (0.66-1.25) mg/dL Glucose 109 H (74-99) mg/dL POC Glucose (mg/dL) 122 H (75-99) mg/dL Calcium 8.0 L (8.4-10.2) mg/dL Total Bilirubin 2.4 H (0.2-1.3) mg/dL Ammonia 49 H (<30) umol/L Total Protein 5.1 L (6.3-8.2) g/dL Albumin 2.2 L (3.5-5.0) g/dL Microbiology - Last 24 Hours (Table) 01/16/20 10:51 Gram Stain - Preliminary Paracentesis Fluid Body Fluid Culture - Preliminary 01/16/20 10:51 Anaerobic Culture - Preliminary Paracentesis Fluid Assessment and Plan (1) Decompensated hepatic cirrhosis Narrative/Plan: 69-year-old male with decompensated cirrhosis of liver secondary to alcohol abuse presenting with shortness of breath and abdominal swelling found to have ascites. He is status post removal of centimeters of a ascitic fluid. Patient denies any episodes of encephalopathy or GI bleed in the past. Fluid overload has been worsening over the past 6 months. Status: Acute Code(s): K72.90 - HEPATIC FAILURE, UNSPECIFIED WITHOUT COMA SNOMED Code(s): 593092436 (2) Ascites of liver Status: Acute Code(s): R18.8 - OTHER ASCITES SNOMED Code(s): 817546765 Plan: Supportive care Sodium restricted diet Aldactone and Lasix initiated Paracentesis performed with over 7 L of ascites removed and fluid studies are pending Alcohol abstinence AFP normal Continue to monitor CBC, CMP Patient will need close follow-up after discharge for continued management Thank you for allowing us to follow with you, and participate in the care of the patient
--- NOTE | 2020-01-18 14:51 | P.DS ---
Providers Date of admission: 01/15/20 15:20 Expected date of discharge: 01/18/20 Attending physician: Yomi Marinelli Consults: 01/15/20 15:39 Consult Physician Routine Consulting Provider: Kimberly Moreno Consult Reason/Comments: cirrhosis Do you want consulting provider notified?: Yes Primary care physician: Stated None Hospital Course: Final diagnosis Massive ascites and massive scrotal edema, possibly secondary to chronic liver disease and cirrhosis of the liver Status post abdominal paracentesis with 7.1 L of straw-colored fluid Possible chronic alcoholic liver disease Thrombocytopenia Mild pancytopenia, possibly related to cirrhosis Hypoalbuminemia Diabetes mellitus, type II Hypertension History of nicotine dependence history of EtOH Increased total bilirubin, possibly mild alcoholic hepatitis Full code Possible bilateral leg cellulitis Discharge disposition Patient is being discharged in a stable condition with guarded prognosis to home and will follow-up with Victoriano Kincaid in [place] upon discharge. Patient will also be following up with Dr. Tiffanie BOLDEN in the outpatient setting as well. Patient will continue on oral Ceftin 500 mg twice daily for the next 3 days. Patient will also continue with Lasix as well as Aldactone. Total time taken is 35 minutes. History of present illness This is a 69-year-old male who was recently admitted for massive ascites along with massive scrotal edema with significant cellulitis of the surrounding tissue and was being closely monitored. During hospitalization patient underwent paracentesis with removal of approximately 7.1 L of fluid and cultures thus far have remained negative. Patient continues to have some significant abdominal distention and the scrotal swelling is slightly improved. Patient instructed to continue with Lasix and Aldactone in the outpatient setting and continue to elevate the scrotum while at rest to help alleviate some of the swelling. Discussed with the patient at length about refraining from any alcohol intake. Patient instructed to continue taking antibiotics until finished and patient will be following up with Dr. Tiffanie BOLDEN in a proximally 3 weeks. Patient will need repeat labs to monitor electrolytes. Currently patient's condition is stable and is ready for discharge today. No reports of chest pain or palpitations. No reports of shortness of breath. Patient is afebrile. No reports of nausea or vomiting and patient is tolerating diet. On exam vital signs are stable. Temp is 98F, pulse is 71, respirations are 17, blood pressure is 131/61, oxygen saturation is 94% on room air. Cardio S1, S2 are muffled. Respiratory system shows diminished breath sounds at the bases with no wheezing or rhonchi noted. Abdomen is soft, mildly distended, and nontender. Nervous system shows no focal deficits. Please refer to medication reconciliation sheet for a list of medications. Patient Condition at Discharge: Stable Plan - Discharge Summary Discharge Rx Participant: No New Discharge Prescriptions: New Spironolactone [Aldactone] 50 mg PO BID 30 Days #60 tab Cefuroxime Axetil [Ceftin] 500 mg PO BID 3 Days #6 tab Folic Acid 1 mg PO DAILY@1200 30 Days #30 tab Furosemide [Lasix] 40 mg PO BID 30 Days #60 tablet Multivitamins, Thera [Multivitamin (formulary)] 1 each PO DAILY@1200 30 Days #30 tab Thiamine [Vitamin B-1] 100 mg PO DAILY@1200 30 Days #30 tab Continue Lisinopril 20 mg PO DAILY metFORMIN HCL 1,000 mg PO DAILY Discharge Medication List Lisinopril 20 mg PO DAILY 01/15/20 [History] metFORMIN HCL 1,000 mg PO DAILY 01/15/20 [History] Cefuroxime Axetil [Ceftin] 500 mg PO BID 3 Days #6 tab 01/18/20 [Rx] Folic Acid 1 mg PO DAILY@1200 30 Days #30 tab 01/18/20 [Rx] Furosemide [Lasix] 40 mg PO BID 30 Days #60 tablet 01/18/20 [Rx] Multivitamins, Thera [Multivitamin (formulary)] 1 each PO DAILY@1200 30 Days #30 tab 01/18/20 [Rx] Spironolactone [Aldactone] 50 mg PO BID 30 Days #60 tab 01/18/20 [Rx] Thiamine [Vitamin B-1] 100 mg PO DAILY@1200 30 Days #30 tab 01/18/20 [Rx] Follow up Appointment(s)/Referral(s): Kimberly Moreno MD [STAFF PHYSICIAN] - 3 Weeks ( does not except insurance.patient will have to switch to [facility] or [facility]) Ambulatory/Diagnostic Orders: Comprehensive Metabolic Panel [LAB.AMB] Time Frame: 3 Days, Location: None Selected Patient Instructions/Handouts: Cefuroxime (By mouth), Spironolactone (By mouth), Thiamine (By mouth), Folic Acid (By mouth), Multivitamins, Adult Formula (By mouth), Ascites (DC), Paracentesis (DC) Activity/Diet/Wound Care/Special Instructions: Activity Limited until follow-up Follow-up with primary care provider upon discharge Follow-up with GI Dr. Tiffanie Marroquin in 3 weeks Refrain from any alcohol intake Continue current diet Repeat labs in 2-3 days Discharge Disposition: HOME SELF-CARE
== END 2020-01-18 13:45 | disposition home or self-care (01) | DRG 433 ==
LOC: 5NMEDONC 15:20
PROVIDERS: ADMIT Hospitalist; ATTEND Hospitalist
PROC: 0W9G3ZZ Drainage of Peritoneal Cavity, Percutaneous Approach (ICD-10-PCS; principal; 2020-01-16)
DX: K70.31 Alcoholic cirrhosis of liver with ascites (principal); D61.818 Other pancytopenia; L03.116 Cellulitis of left lower limb; L03.115 Cellulitis of right lower limb; K70.11 Alcoholic hepatitis with ascites; E11.9 Type 2 diabetes mellitus without complications; I10 Essential (primary) hypertension; F10.10 Alcohol abuse, uncomplicated; N50.89 Other specified disorders of the male genital organs; E87.70 Fluid overload, unspecified; Z79.84 Long term (current) use of oral hypoglycemic drugs; Z79.899 Other long term (current) drug therapy; Z86.718 Personal history of other venous thrombosis and embolism; Z87.891 Personal history of nicotine dependence
CPT/HCPCS: 49083; 71045; 80053; 80074; 80306; 81003; 82105; 82140; 82150; 83690; 83735; 84100; 84157; 85025; 85610; 87070; 87075; 87205; 88108; 88305; 89050; 93005

== ENCOUNTER 2020-05-27 21:13 | Inpatient (IN) | payer MEDICARE ==
[2020-05-28 07:31] LABS: INR 1.4 (<1.2); Prothrombin Time 13.6 sec (9.0-12.0)
[2020-05-28 07:36] LABS: Glucose,Whole Blood 126 mg/dL (75-99)
[2020-05-28] MEDS: INSULIN ASPART (NovoLOG) 100 UNIT/ML VIAL SQ SCH ×4 (07:37→21:33)
[2020-05-28 07:42] LABS: Albumin 2.3 g/dL (3.5-5.0); Calcium 8.3 mg/dL (8.4-10.2); Potassium 4.4 mmol/L (3.5-5.1); Total Bilirubin 1.4 mg/dL (0.2-1.3)
[2020-05-28 07:44] LABS: Basophils % (A) 0 %; Eosinophils # (A) 0.3 k/uL (0-0.7); Eosinophils % (A) 13 %; HCT 29.5 % (39.0-53.0); HGB 9.9 gm/dL (13.0-17.5); Lymphocytes # (A) 0.3 k/uL (1.0-4.8); Lymphocytes % (A) 12 %; MCH 35.3 pg (25.0-35.0); MCHC 33.6 g/dL (31.0-37.0); Macrocytosis Slight; Mean Platelet Volume 7.9; Monocytes # (A) 0.3 k/uL (0-1.0); Monocytes % (A) 15 %; Neutrophils # (A) 1.3 k/uL (1.3-7.7); Neutrophils % (A) 56 %; RBC 2.81 m/uL (4.30-5.90); RDW 13.3 % (11.5-15.5); WBC 2.3 k/uL (3.8-10.6)
[2020-05-28 07:52] LABS: Platelet Count 59 k/uL (150-450)
[2020-05-28 09:06] LABS: Anisocytosis (M) Present; Poikilocytosis (M) Present
--- NOTE | 2020-05-28 09:38 | US ---
EXAMINATION TYPE: US chest DATE OF EXAM: 05/28/2020 COMPARISON: Chest radiograph 01/15/2020 CLINICAL HISTORY: pleural effusion. TECHNIQUE: Targeted ultrasound of the posterior lower left and right chest EXAM MEASUREMENTS: Right Pleural Effusion pocket size: 1.2 cm Right skin surface to fluid distance: 1.9 cm Left Pleural Effusion pocket size: no fluid visualized by ultrasound Right side not marked for possible thoracentesis outside the dept. Left side not marked for possible thoracentesis outside the dept. Pulmonologists are able to review the images in the patient?s EMR. IMPRESSIONS: 1. Small volume right pleural effusion. 2. No left pleural effusion.
--- NOTE | 2020-05-28 10:12 | US ---
EXAMINATION TYPE: US abdomen limited DATE OF EXAM: 05/28/2020 COMPARISON: NONE CLINICAL HISTORY: assess for fluid pocket please. Ascites Small volume ascites seen within the right and left abdomen. IMPRESSION: Small volume ascites.
[2020-05-28 11:30] LABS: Glucose,Whole Blood 120 mg/dL (75-99)
[2020-05-28] MEDS: FOLIC ACID 1 MG TAB PO SCH (11:40)
[2020-05-28] MEDS: THIAMINE 100 MG TAB PO SCH (11:40)
[2020-05-28] MEDS: MULTIVITAMINS, THERA 1 EACH TAB PO SCH (11:40)
[2020-05-28 11:46] LABS: Albumin 2.2 g/dL (3.5-5.0); Calcium 8.5 mg/dL (8.4-10.2); Potassium 4.4 mmol/L (3.5-5.1); Total Bilirubin 1.1 mg/dL (0.2-1.3); Total Protein 4.8 g/dL (6.3-8.2)
[2020-05-28 12:07] LABS: Basophils % (A) 0 %; Eosinophils # (A) 0.3 k/uL (0-0.7); Eosinophils % (A) 12 %; HCT 29.3 % (39.0-53.0); HGB 9.8 gm/dL (13.0-17.5); Lymphocytes # (A) 0.3 k/uL (1.0-4.8); Lymphocytes % (A) 12 %; MCH 35.2 pg (25.0-35.0); MCHC 33.3 g/dL (31.0-37.0); MCV 105.7 fL (80.0-100.0); Macrocytosis Moderate; Mean Platelet Volume 8.5; Monocytes # (A) 0.4 k/uL (0-1.0); Monocytes % (A) 17 %; Neutrophils # (A) 1.1 k/uL (1.3-7.7); Neutrophils % (A) 54 %; RBC 2.77 m/uL (4.30-5.90); RDW 13.4 % (11.5-15.5); WBC 2.1 k/uL (3.8-10.6)
[2020-05-28 12:08] LABS: Platelet Count 56 k/uL (150-450)
[2020-05-28 12:33] LABS: Poikilocytosis (M) Present
--- NOTE | 2020-05-28 13:55 | P.HPIM ---
History of Present Illness This is a pleasant 69 years old male with past medical history of diabetes mellitus, bilateral lower extremity DVT anticoagulation, his doctor asked him to stop coumadin for low platelet count since 2016, liver disease and alcoholic cirrhosis and anasarca. Patient was transferred from [facility]. Initially he presents b ecause of worsening dyspnea and coughing increase in abdominal distention leg swelling Patient went to see his PCP Dr. Carrizales who referred him to the hospital, also suprascapular prednisone he is not sure why but he thinks his for his breathing, he has started taking them yet. He denies chest pain or nausea vomiting or diarrhea. No urinary problem. He has chronic numbness in his fingers but not in his feet for about 5.5 months Vitals are stable. At [facility] labs are showing INR 1.3, WBCs 2.4K, hemoglobin 10.1, platelets 50 5K, sodium 138, potassium 4.3, creatinine 1.3 which is upper normal, GFR is 53 CTA of the chest with contrast showing no pulmonary embolism intact thoracic and abdominal aorta, 6 mm right thyroid nodule right upper lobe ill-defined groundglass opacity and left apical nodular opacity measuring 0.7 x 0.6 x 1 cm with moderate right right pleural effusion and no pneumothorax, some mediastinal lymph nodes measuring 1.2 cm which is very similar to prior study, gallstones, splenomegaly, moderate ascites EKG showing normal sinus rhythm at [address]-T changes and QTC is 366 Patient already been evaluated by abdominal and chest ultrasound, no much fluid to be drained, no need for pulmonary and IR consult for these reasons Review of Systems CONSTITUTIONAL: No fever, no malaise, no fatigue. HEENT: No recent visual problems or hearing problems. Denied any sore throat. CARDIOVASCULAR: No orthopnea, PND, no palpitations, no syncope. PULMONARY: no hemoptysis. GASTROINTESTINAL: No diarrhea, no nausea, no vomiting, no abdominal pain. Normoactive bowel sounds. NEUROLOGICAL: No headaches, no weakness, no numbness. HEMATOLOGICAL: Denies any bleeding or petechiae. GENITOURINARY: Denies any burning micturition, frequency, or urgency. MUSCULOSKELETAL/RHEUMATOLOGICAL: Denies any joint pain, swelling, or any muscle pain. ENDOCRINE: Denies any polyuria or polydipsia. Past Medical History Past Medical History: Diabetes Mellitus, Liver Disease Additional Past Medical History / Comment(s): Hx. of bilateral lower extremity DVT. Patient was previously on Coumadin, however patient was told to stop taking Coumadin r/t low platelet count. Coumadin stopped in 2015. History of Any Multi-Drug Resistant Organisms: None Reported Past Anesthesia/Blood Transfusion Reactions: No Reported Reaction Past Psychological History: No Psychological Hx Reported Smoking Status: Never smoker Past Drug Use History: None Reported - Past Family History Mother Additional Family Medical History / Comment(s): Patient states that he was adopted and does not know any history on biological family. Medications and Allergies Home Medications Medication Instructions Recorded Confirmed Type Lisinopril 20 mg PO HS 01/15/20 05/28/20 History metFORMIN HCL 500 mg PO BID 01/15/20 05/28/20 History Furosemide [Lasix] 40 mg PO BID 30 Days #60 tablet 01/18/20 05/28/20 Rx Spironolactone [Aldactone] 50 mg PO BID 30 Days #60 tab 01/18/20 05/28/20 Rx Sulfamethox-Tmp 800-160Mg [Bactrim 1 tab PO Q12H 05/28/20 05/28/20 History DS 800-160 mg] predniSONE [Deltasone] 40 mg PO DAILY 05/28/20 05/28/20 History Allergies Allergy/AdvReac Type Severity Reaction Status Date / Time No Known Allergies Allergy Verified 05/28/20 08:28 Physical Exam Vitals: Vital Signs Temp Pulse Resp BP Pulse Ox 05/28/20 07:00 97.8 F 52 L 18 94/45 94 L 05/28/20 00:00 95 18 05/27/20 23:22 98.9 F 95 18 114/48 99 Intake and Output 05/27/20 05/28/20 05/28/20 22:59 06:59 14:59 Other: Voiding Method Toilet Urinal # Voids 1 Weight 93.157 kg GENERAL: The patient is alert and oriented x3, not in any acute distress. Well developed, well nourished. HEENT: Pupils are round and equally reacting to light. EOMI. No scleral icterus. No conjunctival pallor. Normocephalic, atraumatic. No pharyngeal erythema. No thyromegaly. CARDIOVASCULAR: S1 and S2 present. No murmurs, rubs, or gallops. -PULMONARY: Chest is clear to auscultation, no wheezing. Bilateral mild crackles. -ABDOMEN: Soft, nontender, mildly distended, normoactive bowel sounds. No palpable organomegaly. MUSCULOSKELETAL: No joint swelling or deformity. -EXTREMITIES: No cyanosis, clubbing, 2+ bilateral leg edema NEUROLOGICAL: Gross neurological examination did not reveal any focal deficits. SKIN: No rashes. No petechiae Results CBC & Chem 7: 05/28/20 11:06 05/28/20 11:06 Labs: Abnormal Lab Results - Last 24 Hours (Table) 05/28/20 05/28/20 05/28/20 Range/Units 06:48 06:48 06:48 WBC 2.3 L (3.8-10.6) k/uL RBC 2.81 L (4.30-5.90) m/uL Hgb 9.9 L (13.0-17.5) gm/dL Hct 29.5 L (39.0-53.0) % MCV 105.0 H (80.0-100.0) fL MCH 35.3 H (25.0-35.0) pg Plt Count 59 L (150-450) k/uL Neutrophils # (1.3-7.7) k/uL Lymphocytes # 0.3 L (1.0-4.8) k/uL PT 13.6 H (9.0-12.0) sec INR 1.4 H (<1.2) Sodium 134 L (137-145) mmol/L Glucose (74-99) mg/dL POC Glucose (mg/dL) (75-99) mg/dL Calcium 8.3 L (8.4-10.2) mg/dL Total Bilirubin 1.4 H (0.2-1.3) mg/dL Total Protein 5.0 L (6.3-8.2) g/dL Albumin 2.3 L (3.5-5.0) g/dL 05/28/20 05/28/20 05/28/20 Range/Units 07:35 11:06 11:06 WBC 2.1 L (3.8-10.6) k/uL RBC 2.77 L (4.30-5.90) m/uL Hgb 9.8 L (13.0-17.5) gm/dL Hct 29.3 L (39.0-53.0) % MCV 105.7 H (80.0-100.0) fL MCH 35.2 H (25.0-35.0) pg Plt Count 56 L (150-450) k/uL Neutrophils # 1.1 L (1.3-7.7) k/uL Lymphocytes # 0.3 L (1.0-4.8) k/uL PT (9.0-12.0) sec INR (<1.2) Sodium 134 L (137-145) mmol/L Glucose 125 H (74-99) mg/dL POC Glucose (mg/dL) 126 H (75-99) mg/dL Calcium (8.4-10.2) mg/dL Total Bilirubin (0.2-1.3) mg/dL Total Protein 4.8 L (6.3-8.2) g/dL Albumin 2.2 L (3.5-5.0) g/dL 05/28/20 Range/Units 11:28 WBC (3.8-10.6) k/uL RBC (4.30-5.90) m/uL Hgb (13.0-17.5) gm/dL Hct (39.0-53.0) % MCV (80.0-100.0) fL MCH (25.0-35.0) pg Plt Count (150-450) k/uL Neutrophils # (1.3-7.7) k/uL Lymphocytes # (1.0-4.8) k/uL PT (9.0-12.0) sec INR (<1.2) Sodium (137-145) mmol/L Glucose (74-99) mg/dL POC Glucose (mg/dL) 120 H (75-99) mg/dL Calcium (8.4-10.2) mg/dL Total Bilirubin (0.2-1.3) mg/dL Total Protein (6.3-8.2) g/dL Albumin (3.5-5.0) g/dL Thrombosis Risk Factor Assmnt - Choose All That Apply Any of the Below Risk Factors Present?: Yes Each Factor Represents 1 point: Medical pt on bed rest, Swollen legs (current) Other Risk Factors: Yes Each Risk Factor Represents 2 Points: Age 61-74 years Each Risk Factor Represents 3 Points: History of DVT/PE Thrombosis Risk Factor Assessment Total Risk Factor Score: 7 Thrombosis Risk Factor Assessment Level: High Risk Assessment and Plan Assessment: Alcoholic liver cirrhosis with anasarca Portal hypertension with splenomegaly Left apical pulmonary nodule of 0.7 x 0.6 x 1 cm Right pleural effusion, loculated 6 cm right thyroid nodule Chronic kidney disease, stage III diabetic neuropathy Plan: This is a pleasant 69 years old male who presents with liver cirrhosis and fluid overload. Continue with diuretics. GI consult.Stop prednisone, start Neurontin for diabetic neuropathy Labs and medication were reviewed.. Continue same treatment. Continue with symptomatic treatment. Resume home medication. Monitor lytes and vitals. DVT and GI prophylaxis. Further recommendations of the clinical course of the patient DVT prophylaxis: Subcutaneous heparin GI Prophylaxis: Ppi PT/OT: Pending Prognosis is guarded
[2020-05-28] MEDS ORDERED: FUROSEMIDE 10 MG/ML 4 ML VIAL IV SCH (14:00)
[2020-05-28] MEDS: PANTOPRAZOLE 40 MG TABLET PO SCH (14:40)
[2020-05-28] MEDS: GABAPENTIN 100 MG CAP PO SCH ×2 (14:40→21:33)
[2020-05-28] MEDS ORDERED: FUROSEMIDE 40 MG TAB PO SCH (16:00)
[2020-05-28 16:29] LABS: Glucose,Whole Blood 99 mg/dL (75-99)
[2020-05-28] MEDS: FUROSEMIDE 10 MG/ML 4 ML VIAL IV SCH ×2 (16:41→23:05)
[2020-05-28] MEDS: metFORMIN 500 MG TAB PO SCH (16:41)
[2020-05-28 21:20] LABS: Glucose,Whole Blood 132 mg/dL (75-99)
[2020-05-28] MEDS: LISINOPRIL 20 MG TAB PO SCH (21:33)
[2020-05-28] MEDS: HEPARIN SODIUM,PORCINE 5,000 UNIT/ML 1 ML VIAL SQ SCH (21:33)
[2020-05-28] MEDS: SPIRONOLACTONE 25 MG TAB PO SCH (21:33)
[2020-05-29 06:51] LABS: Glucose,Whole Blood 79 mg/dL (75-99)
[2020-05-29] MEDS: INSULIN ASPART (NovoLOG) 100 UNIT/ML VIAL SQ SCH ×4 (06:56→21:15)
[2020-05-29] MEDS: metFORMIN 500 MG TAB PO SCH ×2 (06:57→16:49)
[2020-05-29] MEDS: PANTOPRAZOLE 40 MG TABLET PO SCH (07:36)
[2020-05-29] MEDS: SPIRONOLACTONE 25 MG TAB PO SCH ×2 (07:36→21:20)
[2020-05-29] MEDS: MULTIVITAMINS, THERA 1 EACH TAB PO SCH (07:36)
[2020-05-29] MEDS: FOLIC ACID 1 MG TAB PO SCH (07:36)
[2020-05-29] MEDS: GABAPENTIN 100 MG CAP PO SCH ×2 (07:36→21:20)
[2020-05-29] MEDS: THIAMINE 100 MG TAB PO SCH (07:36)
[2020-05-29] MEDS: FUROSEMIDE 10 MG/ML 4 ML VIAL IV SCH ×3 (07:37→23:15)
[2020-05-29] MEDS: HEPARIN SODIUM,PORCINE 5,000 UNIT/ML 1 ML VIAL SQ SCH ×2 (07:37→21:20)
[2020-05-29 08:05] LABS: INR 1.3 (<1.2); Prothrombin Time 12.9 sec (9.0-12.0)
[2020-05-29 08:20] LABS: Albumin 2.6 g/dL (3.5-5.0); Calcium 8.4 mg/dL (8.4-10.2); Total Bilirubin 1.4 mg/dL (0.2-1.3); Total Protein 5.5 g/dL (6.3-8.2)
[2020-05-29 08:28] LABS: Basophils % (A) 0 %; Eosinophils # (A) 0.3 k/uL (0-0.7); Eosinophils % (A) 10 %; HGB 10.9 gm/dL (13.0-17.5); Lymphocytes # (A) 0.5 k/uL (1.0-4.8); Lymphocytes % (A) 18 %; MCH 34.5 pg (25.0-35.0); MCV 104.5 fL (80.0-100.0); Macrocytosis Slight; Mean Platelet Volume 7.9; Monocytes # (A) 0.3 k/uL (0-1.0); Monocytes % (A) 10 %; Neutrophils # (A) 1.5 k/uL (1.3-7.7); Neutrophils % (A) 57 %; RBC 3.16 m/uL (4.30-5.90); RDW 13.3 % (11.5-15.5); WBC 2.7 k/uL (3.8-10.6)
[2020-05-29 08:30] LABS: Platelet Count 65 k/uL (150-450)
[2020-05-29] MEDS ORDERED: predniSONE 20 MG TAB PO SCH (09:00)
[2020-05-29] MEDS ORDERED: SODIUM CHLORIDE 0.9% 1,000 ML IV SCH (09:15)
--- NOTE | 2020-05-29 09:32 | P.PN ---
Subjective This is a pleasant 69 years old male with past medical history of diabetes mellitus, bilateral lower extremity DVT anticoagulation, his doctor asked him to stop coumadin for low platelet count since 2016, liver disease and alcoholic cirrhosis and anasarca. Patient was transferred from [facility]. Initially he presents because of worsening dyspnea and coughing increase in abdominal distention leg swelling Patient went to see his PCP Dr. Carrizales who referred him to the hospital, also suprascapular prednisone he is not sure why but he thinks his for his breathing, he has started taking them yet. He denies chest pain or nausea vomiting or diarrhea. No urinary problem. He has chronic numbness in his fingers but not in his feet for about 5.5 months Vitals are stable. At [facility] labs are showing INR 1.3, WBCs 2.4K, hemoglobin 10.1, platelets 50 5K, sodium 138, potassium 4.3, creatinine 1.3 which is upper normal, GFR is 53 CTA of the chest with contrast showing no pulmonary embolism intact thoracic and abdominal aorta, 6 mm right thyroid nodule right upper lobe ill-defined groundglass opacity and left apical nodular opacity measuring 0.7 x 0.6 x 1 cm with moderate right right pleural effusion and no pneumothorax, some mediastinal lymph nodes measuring 1.2 cm which is very similar to prior study, gallstones, splenomegaly, moderate ascites EKG showing normal sinus rhythm at [address]-T changes and QTC is 366 Patient already been evaluated by abdominal and chest ultrasound, no much fluid to be drained, no need for pulmonary and IR consult for these reasons 05/29/2020 Patient is awake, alert, no new complaint, he confirmed to me that he went to see his PCP Dr. Celestino Carrizales because he had swelling in his bili and lower extremities, also on admission he has some dyspnea however today his breathing more easily and he feels his leg swelling is getting less, however he still have 2+ bilateral leg edema, we ordered daily weight. She is mildly pancytopenic which is a stable, INR is stable at 1.3. Liver enzymes not elevated, total bilirubin 1.4, BMP is unremarkable GI team is consulted. Abdominal ultrasound showing small ascites. Chest ultrasound showing Patient remains on Lasix 40 mg IV every 8 hours plus Aldactone 50 mg twice daily Review of Systems CONSTITUTIONAL: No fever, no malaise, no fatigue. HEENT: No recent visual problems or hearing problems. Denied any sore throat. CARDIOVASCULAR: No orthopnea, PND, no palpitations, no syncope. PULMONARY: no hemoptysis. GASTROINTESTINAL: No diarrhea, no nausea, no vomiting, no abdominal pain. Normoactive bowel sounds. NEUROLOGICAL: No headaches, no weakness, no numbness. HEMATOLOGICAL: Denies any bleeding or petechiae. GENITOURINARY: Denies any burning micturition, frequency, or urgency. MUSCULOSKELETAL/RHEUMATOLOGICAL: Denies any joint pain, swelling, or any muscle pain. ENDOCRINE: Denies any polyuria or polydipsia. Active Medications Generic Name Dose Route Start Last Admin Trade Name Freq PRN Reason Stop Dose Admin Folic Acid 1 mg 05/28/20 12:00 05/29/20 07:36 Folic Acid PO 1 mg DAILY@1200 [facility] Administration Furosemide 40 mg 05/28/20 16:00 05/29/20 07:37 Lasix IV 40 mg Q8HR IAM Administration Gabapentin 100 mg 05/28/20 14:00 05/29/20 07:36 Neurontin PO 100 mg BID IAM Administration Heparin Sodium (Porcine) 5,000 unit 05/28/20 21:00 05/29/20 07:37 Heparin SQ 5,000 unit Q12HR IAM Administration Insulin Aspart 0 unit 05/28/20 07:30 05/29/20 06:56 Novolog SQ Not Given [facility] Protocol Lisinopril 20 mg 05/28/20 21:00 05/28/20 21:33 Zestril PO 20 mg HS IAM Administration Metformin HCl 500 mg 05/28/20 17:30 05/29/20 06:57 Glucophage PO Not Given AC-BID IAM Multivitamins 1 each 05/28/20 12:00 05/29/20 07:36 Theragran PO 1 each DAILY@1200 [facility] Administration Pantoprazole Sodium 40 mg 05/28/20 13:45 05/29/20 07:36 Protonix PO 40 mg AC-[id number] IAM Administration Spironolactone 50 mg 05/28/20 21:00 05/29/20 07:36 Aldactone PO 50 mg BID IAM Administration Thiamine HCl 100 mg 05/28/20 12:00 05/29/20 07:36 Vitamin B-1 PO 100 mg DAILY@1200 I[facility] Administration Objective - Vital Signs Vital signs: Vital Signs Temp 98.4 F 05/29/20 07:00 Pulse 77 05/29/20 07:00 Resp 18 05/29/20 07:00 BP 113/55 05/29/20 07:00 Pulse Ox 91 L 05/29/20 07:00 Intake & Output 05/28/20 05/29/20 05/29/20 18:59 06:59 18:59 Intake Total 1080 Balance 1080 Intake: Oral 1080 Other: Voiding Method Toilet Toilet # Voids 3 2 - Exam GENERAL: The patient is alert and oriented x3, not in any acute distress. Well developed, well nourished. HEENT: Pupils are round and equally reacting to light. EOMI. No scleral icterus. No conjunctival pallor. Normocephalic, atraumatic. No pharyngeal erythema. No thyromegaly. CARDIOVASCULAR: S1 and S2 present. No murmurs, rubs, or gallops. -PULMONARY: Chest is clear to auscultation, no wheezing. Bilateral mild crackles. -ABDOMEN: Soft, nontender, mildly distended, normoactive bowel sounds. No palpable organomegaly. MUSCULOSKELETAL: No joint swelling or deformity. -EXTREMITIES: No cyanosis, clubbing, 2+ bilateral leg edema NEUROLOGICAL: Gross neurological examination did not reveal any focal deficits. SKIN: No rashes. No petechiae - Labs CBC & Chem 7: 05/29/20 07:28 05/29/20 07:28 Labs: Abnormal Lab Results - Last 24 Hours (Table) 05/28/20 05/28/20 05/28/20 Range/Units 11:06 11:06 11:28 WBC 2.1 L (3.8-10.6) k/uL RBC 2.77 L (4.30-5.90) m/uL Hgb 9.8 L (13.0-17.5) gm/dL Hct 29.3 L (39.0-53.0) % MCV 105.7 H (80.0-100.0) fL MCH 35.2 H (25.0-35.0) pg Plt Count 56 L (150-450) k/uL Neutrophils # 1.1 L (1.3-7.7) k/uL Lymphocytes # 0.3 L (1.0-4.8) k/uL PT (9.0-12.0) sec INR (<1.2) Sodium 134 L (137-145) mmol/L Glucose 125 H (74-99) mg/dL POC Glucose (mg/dL) 120 H (75-99) mg/dL Total Bilirubin (0.2-1.3) mg/dL Total Protein 4.8 L (6.3-8.2) g/dL Albumin 2.2 L (3.5-5.0) g/dL 05/28/20 05/29/20 05/29/20 Range/Units 21:18 07:28 07:28 WBC 2.7 L (3.8-10.6) k/uL RBC 3.16 L (4.30-5.90) m/uL Hgb 10.9 L (13.0-17.5) gm/dL Hct 33.0 L (39.0-53.0) % MCV 104.5 H (80.0-100.0) fL MCH (25.0-35.0) pg Plt Count 65 L (150-450) k/uL Neutrophils # (1.3-7.7) k/uL Lymphocytes # 0.5 L (1.0-4.8) k/uL PT (9.0-12.0) sec INR (<1.2) Sodium 136 L (137-145) mmol/L Glucose (74-99) mg/dL POC Glucose (mg/dL) 132 H (75-99) mg/dL Total Bilirubin 1.4 H (0.2-1.3) mg/dL Total Protein 5.5 L (6.3-8.2) g/dL Albumin 2.6 L (3.5-5.0) g/dL 05/29/20 Range/Units 07:28 WBC (3.8-10.6) k/uL RBC (4.30-5.90) m/uL Hgb (13.0-17.5) gm/dL Hct (39.0-53.0) % MCV (80.0-100.0) fL MCH (25.0-35.0) pg Plt Count (150-450) k/uL Neutrophils # (1.3-7.7) k/uL Lymphocytes # (1.0-4.8) k/uL PT 12.9 H (9.0-12.0) sec INR 1.3 H (<1.2) Sodium (137-145) mmol/L Glucose (74-99) mg/dL POC Glucose (mg/dL) (75-99) mg/dL Total Bilirubin (0.2-1.3) mg/dL Total Protein (6.3-8.2) g/dL Albumin (3.5-5.0) g/dL Assessment and Plan Assessment: Alcoholic liver cirrhosis with anasarca Portal hypertension with splenomegaly Left apical pulmonary nodule of 0.7 x 0.6 x 1 cm Right pleural effusion, loculated 6 cm right thyroid nodule Chronic kidney disease, stage III diabetic neuropathy Plan: This is a pleasant 69 years old male who presents with liver cirrhosis and fluid overload. Continue with diuretics. GI consult.Stop prednisone, start Neurontin for diabetic neuropathy Labs and medication were reviewed.. Continue same treatment. Continue with sy mptomatic treatment. Resume home medication. Monitor lytes and vitals. DVT and GI prophylaxis. Further recommendations of the clinical course of the patient DVT prophylaxis: Subcutaneous heparin GI Prophylaxis: Ppi PT/OT: Pending Prognosis is guarded
[2020-05-29 11:15] LABS: Glucose,Whole Blood 115 mg/dL (75-99)
[2020-05-29 11:29] VITALS: BMI 30.3
[2020-05-29 16:34] LABS: Glucose,Whole Blood 107 mg/dL (75-99)
--- NOTE | 2020-05-29 19:40 | P.CONS ---
History of Present Illness - Reason for Consult Consult date: 05/28/20 Decompensated cirrhosis Requesting physician: Alvin E Sheet - Chief Complaint Shortness of breath - History of Present Illness 69-year-old male with a medical history significant for alcohol abuse, diabetes mellitus and decompensated alcoholic cirrhosis with ascites presented to the hospital with complaints of shortness of breath, abdominal distention and lower extremity swelling. The patient recently established care with a primary care physician and was started on diuretic therapy with Lasix 40 mg twice daily and Aldactone 40 mg twice daily. He had been on medication for approximately one week. Prior to that the patient had not been on any diuretic therapy since previously being admitted and told of his decompensated cirrhosis due to poor follow-up and noncompliance with medical therapy. He presented back to the hospital due to complaints of abdominal distention, with associated shortness of breath. Previous paracentesis in January 2020 was significant for 7 L of ascitic fluid. Ultrasound on current presentation is significant only for small volume ascites. Other laboratory evaluation significant for a WBC 2.1, hemoglobin 9.8, platelet count 56,000, INR 1.4, total bilirubin 1.1, alkaline phosphatase is 91, AST 48 and ALT 19. Review of Systems REVIEW OF SYSTEMS: CONSTITUTIONAL: Denies any fevers, chills, but does report weight gain in association with fluid overload. CARDIOVASCULAR: Denies any chest pain, palpitations high or low blood pressures RESPIRATORY: Denies any , hemoptysis but did report shortness of breath and cough. GENITOURINARY: No dysuria or hematuria. MUSCULOSKELETAL: No weakness reported. SKIN: Denies any new rashes or lesions, jaundice or pallor. PSYCHIATRIC: Denies any depression or anxiety. NEUROLOGY: Denies headache, denies any new focal deficits. EARS/NOSE/THROAT: No recent hearing change, congestion, nasal discharge or sore throat. EYES: No pain in eyes, discharge or change in vision. GASTROINTESTINAL: As per HPI. Past Medical History Past Medical History: Diabetes Mellitus, Liver Disease Additional Past Medical History / Comment(s): Hx. of bilateral lower extremity DVT. Patient was previously on Coumadin, however patient was told to stop taking Coumadin r/t low platelet count. Coumadin stopped in 2015. History of Any Multi-Drug Resistant Organisms: None Reported Past Anesthesia/Blood Transfusion Reactions: No Reported Reaction Past Psychological History: No Psychological Hx Reported Smoking Status: Never smoker Past Drug Use History: None Reported - Past Family History Mother Additional Family Medical History / Comment(s): Patient states that he was adopted and does not know any history on biological family. Medications and Allergies Home Medications Medication Instructions Recorded Confirmed Type Lisinopril 20 mg PO HS 01/15/20 05/28/20 History metFORMIN HCL 500 mg PO BID 01/15/20 05/28/20 History Furosemide [Lasix] 40 mg PO BID 30 Days #60 tablet 01/18/20 05/28/20 Rx Spironolactone [Aldactone] 50 mg PO BID 30 Days #60 tab 01/18/20 05/28/20 Rx Sulfamethox-Tmp 800-160Mg [Bactrim 1 tab PO Q12H 05/28/20 05/28/20 History DS 800-160 mg] predniSONE [Deltasone] 40 mg PO DAILY 05/28/20 05/28/20 History Allergies Allergy/AdvReac Type Severity Reaction Status Date / Time No Known Allergies Allergy Verified 05/28/20 08:28 Physical Exam Vitals: Vital Signs Temp Pulse Pulse Resp BP Pulse Ox 05/28/20 14:51 78 20 05/28/20 13:53 97.8 F 76 20 100/49 05/28/20 07:00 97.8 F 52 L 18 94/45 94 L 05/28/20 00:00 95 18 05/27/20 23:22 98.9 F 95 18 114/48 99 Intake and Output 05/28/20 05/28/20 05/28/20 06:59 14:59 22:59 Other: Voiding Method Toilet Urinal # Voids 1 Weight 93.157 kg On physical examination, patient appears comfortable in no apparent distress. HEAD: Normocephalic, atraumatic. EYES: No scleral icterus. No conjunctival injection. MOUTH: No lesions, tongue midline. NECK: Trachea midline, no gross abnormalities. CHEST: Decreased air entry in all lung benjamin. HEART: Regular rate and rhythm. ABDOMEN: Soft, obese and mildly distended. Bowel sounds are positive. No organomegaly. No guarding or rigidity. EXTREMITIES: Bilateral +1 pedal edema. SKIN: No rashes, no jaundice. NEUROLOGIC: Alert and oriented x3. No focal deficits. Results CBC & Chem 7: 05/29/20 07:28 05/29/20 07:28 Labs: Abnormal Lab Results - Last 24 Hours (Table) 05/28/20 05/28/20 05/28/20 Range/Units 06:48 06:48 06:48 WBC 2.3 L (3.8-10.6) k/uL RBC 2.81 L (4.30-5.90) m/uL Hgb 9.9 L (13.0-17.5) gm/dL Hct 29.5 L (39.0-53.0) % MCV 105.0 H (80.0-100.0) fL MCH 35.3 H (25.0-35.0) pg Plt Count 59 L (150-450) k/uL Neutrophils # (1.3-7.7) k/uL Lymphocytes # 0.3 L (1.0-4.8) k/uL PT 13.6 H (9.0-12.0) sec INR 1.4 H (<1.2) Sodium 134 L (137-145) mmol/L Glucose (74-99) mg/dL POC Glucose (mg/dL) (75-99) mg/dL Calcium 8.3 L (8.4-10.2) mg/dL Total Bilirubin 1.4 H (0.2-1.3) mg/dL Total Protein 5.0 L (6.3-8.2) g/dL Albumin 2.3 L (3.5-5.0) g/dL 05/28/20 05/28/20 05/28/20 Range/Units 07:35 11:06 11:06 WBC 2.1 L (3.8-10.6) k/uL RBC 2.77 L (4.30-5.90) m/uL Hgb 9.8 L (13.0-17.5) gm/dL Hct 29.3 L (39.0-53.0) % MCV 105.7 H (80.0-100.0) fL MCH 35.2 H (25.0-35.0) pg Plt Count 56 L (150-450) k/uL Neutrophils # 1.1 L (1.3-7.7) k/uL Lymphocytes # 0.3 L (1.0-4.8) k/uL PT (9.0-12.0) sec INR (<1.2) Sodium 134 L (137-145) mmol/L Glucose 125 H (74-99) mg/dL POC Glucose (mg/dL) 126 H (75-99) mg/dL Calcium (8.4-10.2) mg/dL Total Bilirubin (0.2-1.3) mg/dL Total Protein 4.8 L (6.3-8.2) g/dL Albumin 2.2 L (3.5-5.0) g/dL 05/28/20 Range/Units 11:28 WBC (3.8-10.6) k/uL RBC (4.30-5.90) m/uL Hgb (13.0-17.5) gm/dL Hct (39.0-53.0) % MCV (80.0-100.0) fL MCH (25.0-35.0) pg Plt Count (150-450) k/uL Neutrophils # (1.3-7.7) k/uL Lymphocytes # (1.0-4.8) k/uL PT (9.0-12.0) sec INR (<1.2) Sodium (137-145) mmol/L Glucose (74-99) mg/dL POC Glucose (mg/dL) 120 H (75-99) mg/dL Calcium (8.4-10.2) mg/dL Total Bilirubin (0.2-1.3) mg/dL Total Protein (6.3-8.2) g/dL Albumin (3.5-5.0) g/dL US - abdomen: report reviewed (Ultrasound of the abdomen with small volume ascites noted.) Assessment and Plan (1) Decompensated hepatic cirrhosis Narrative/Plan: 69-year-old male with a known history of decompensated cirrhosis of the liver with ascites previously noncompliant with medical therapy he was recently started on diuretics with spironolactone and Aldactone she had been taking for 1 week to presented to the hospital due to increasing shortness of breath and fluid overload. Ultrasound on current admission which was a small volume of ascites. Currently on Aldactone twice a day and Lasix 3 times a day. He reports abstinence from alcohol since his last hospitalization. Current Visit: No Status: Acute Code(s): K72.90 - HEPATIC FAILURE, UNSPECIFIED WITHOUT COMA SNOMED Code(s): 828058706 (2) Abdominal ascites Current Visit: Yes Status: Acute Code(s): R18.8 - OTHER ASCITES SNOMED Code(s): 010843277 Plan: Supportive care Sodium restricted diet Continue alcohol abstinence Continue Aldactone and Lasix for diuresis Ultrasound of the abdomen with only a small amount of ascites noted Continue to monitor CBC, BMP, LFTs Thank you for allowing us to participate in the care of the patient
[2020-05-29 21:05] LABS: Glucose,Whole Blood 118 mg/dL (75-99)
[2020-05-29] MEDS: LISINOPRIL 20 MG TAB PO SCH (21:20)
--- NOTE | 2020-05-29 22:01 | P.PN ---
Subjective Progress Note Date: 05/29/20 Principal diagnosis: Ascites, decompensated cirrhosis of the liver Patient is seen lying in bed in no acute complaints. Tolerating diet. No bowel movements today. Objective - Vital Signs Vital signs: Vital Signs Temp 98.4 F 05/29/20 07:00 Pulse 77 05/29/20 07:00 Resp 18 05/29/20 07:00 BP 113/55 05/29/20 07:00 Pulse Ox 91 L 05/29/20 07:00 Intake & Output 05/28/20 05/29/20 05/29/20 18:59 06:59 18:59 Intake Total 1080 Balance 1080 Weight 93.157 kg Intake: Oral 1080 Other: Voiding Method Toilet Toilet # Voids 3 2 - Exam On physical examination, patient appears comfortable in no apparent distress. HEAD: Normocephalic, atraumatic. EYES: No scleral icterus. No conjunctival injection. MOUTH: No lesions, tongue midline. NECK: Trachea midline, no gross abnormalities. ABDOMEN: Soft, obese and mildly distended. Bowel sounds are positive. No organomegaly. No guarding or rigidity. EXTREMITIES: No pedal edema. SKIN: No rashes, no jaundice. NEUROLOGIC: Alert and oriented x3. No focal deficits. - Labs CBC & Chem 7: 05/29/20 07:28 05/29/20 07:28 Labs: Abnormal Lab Results - Last 24 Hours (Table) 05/28/20 05/28/20 05/29/20 Range/Units 11:06 21:18 07:28 WBC 2.1 L 2.7 L (3.8-10.6) k/uL RBC 2.77 L 3.16 L (4.30-5.90) m/uL Hgb 9.8 L 10.9 L (13.0-17.5) gm/dL Hct 29.3 L 33.0 L (39.0-53.0) % MCV 105.7 H 104.5 H (80.0-100.0) fL MCH 35.2 H (25.0-35.0) pg Plt Count 56 L 65 L (150-450) k/uL Neutrophils # 1.1 L (1.3-7.7) k/uL Lymphocytes # 0.3 L 0.5 L (1.0-4.8) k/uL PT (9.0-12.0) sec INR (<1.2) Sodium (137-145) mmol/L POC Glucose (mg/dL) 132 H (75-99) mg/dL Total Bilirubin (0.2-1.3) mg/dL Total Protein (6.3-8.2) g/dL Albumin (3.5-5.0) g/dL 05/29/20 05/29/20 05/29/20 Range/Units 07:28 07:28 11:14 WBC (3.8-10.6) k/uL RBC (4.30-5.90) m/uL Hgb (13.0-17.5) gm/dL Hct (39.0-53.0) % MCV (80.0-100.0) fL MCH (25.0-35.0) pg Plt Count (150-450) k/uL Neutrophils # (1.3-7.7) k/uL Lymphocytes # (1.0-4.8) k/uL PT 12.9 H (9.0-12.0) sec INR 1.3 H (<1.2) Sodium 136 L (137-145) mmol/L POC Glucose (mg/dL) 115 H (75-99) mg/dL Total Bilirubin 1.4 H (0.2-1.3) mg/dL Total Protein 5.5 L (6.3-8.2) g/dL Albumin 2.6 L (3.5-5.0) g/dL Assessment and Plan (1) Decompensated hepatic cirrhosis Narrative/Plan: 69-year-old male with a known history of decompensated cirrhosis of the liver with ascites previously noncompliant with medical therapy he was recently started on diuretics with spironolactone and Aldactone she had been taking for 1 week to presented to the hospital due to increasing shortness of breath and fluid overload. Ultrasound on current admission which was a small volume of ascites. Currently on Aldactone twice a day and Lasix 3 times a day. He reports abstinence from alcohol since his last hospitalization. Current Visit: No Status: Acute Code(s): K72.90 - HEPATIC FAILURE, UNSPECIFIED WITHOUT COMA SNOMED Code(s): 905289856 (2) Abdominal ascites Current Visit: Yes Status: Acute Code(s): R18.8 - OTHER ASCITES SNOMED Code(s): 743800665 Plan: Supportive care Sodium restricted diet Continue alcohol abstinence Continue Aldactone and Lasix for diuresis Ultrasound of the abdomen with only a small amount of ascites noted Continue to monitor CBC, BMP, LFTs Thank you for allowing us to participate in the care of the patient
[2020-05-30 04:06] VITALS: TEMP 97.9
[2020-05-30 07:19] LABS: Glucose,Whole Blood 84 mg/dL (75-99)
[2020-05-30] MEDS: INSULIN ASPART (NovoLOG) 100 UNIT/ML VIAL SQ SCH ×2 (07:21→12:15)
[2020-05-30 08:06] LABS: Basophils % (A) 0 %; Eosinophils # (A) 0.3 k/uL (0-0.7); Eosinophils % (A) 10 %; HCT 29.3 % (39.0-53.0); HGB 9.9 gm/dL (13.0-17.5); Lymphocytes # (A) 0.6 k/uL (1.0-4.8); Lymphocytes % (A) 22 %; MCH 35.6 pg (25.0-35.0); MCHC 33.7 g/dL (31.0-37.0); MCV 105.6 fL (80.0-100.0); Macrocytosis Slight; Mean Platelet Volume 7.7; Monocytes # (A) 0.3 k/uL (0-1.0); Monocytes % (A) 11 %; Neutrophils # (A) 1.4 k/uL (1.3-7.7); Neutrophils % (A) 54 %; RBC 2.78 m/uL (4.30-5.90); RDW 13.2 % (11.5-15.5); WBC 2.6 k/uL (3.8-10.6)
[2020-05-30] MEDS: SPIRONOLACTONE 25 MG TAB PO SCH (08:06)
[2020-05-30] MEDS: PANTOPRAZOLE 40 MG TABLET PO SCH (08:06)
[2020-05-30] MEDS: metFORMIN 500 MG TAB PO SCH (08:06)
[2020-05-30] MEDS: FOLIC ACID 1 MG TAB PO SCH (08:06)
[2020-05-30] MEDS: FUROSEMIDE 10 MG/ML 4 ML VIAL IV SCH (08:06)
[2020-05-30] MEDS: HEPARIN SODIUM,PORCINE 5,000 UNIT/ML 1 ML VIAL SQ SCH ×2 (08:06→08:13)
[2020-05-30] MEDS: GABAPENTIN 100 MG CAP PO SCH (08:06)
[2020-05-30] MEDS: THIAMINE 100 MG TAB PO SCH (08:06)
[2020-05-30] MEDS: MULTIVITAMINS, THERA 1 EACH TAB PO SCH (08:06)
[2020-05-30 08:11] LABS: Platelet Count 60 k/uL (150-450)
[2020-05-30 08:34] VITALS: BP 106/54; PULSE 84; RESP 18
[2020-05-30 08:37] LABS: ALT 21 U/L (4-49); AST 48 U/L (17-59); African American GFR (CKD) >90 (>60 ml/min/1.73 sqM); Albumin 2.3 g/dL (3.5-5.0); Alkaline Phosphatase 96 U/L (38-126); Anion Gap 5 mmol/L; Blood Urea Nitrogen 17 mg/dL (9-20); Calcium 8.1 mg/dL (8.4-10.2); Carbon Dioxide 26 mmol/L (22-30); Chloride 105 mmol/L (98-107); Glucose 72 mg/dL (74-99); Magnesium 1.6 mg/dL (1.6-2.3); Non-African American GFR(CKD) 82 (>60 ml/min/1.73 sqM); Potassium 3.8 mmol/L (3.5-5.1); Sodium 136 mmol/L (137-145); Total Bilirubin 1.2 mg/dL (0.2-1.3); Total Protein 5.1 g/dL (6.3-8.2)
[2020-05-30 11:09] LABS: Folate, Serum 9.3 ng/mL
--- NOTE | 2020-05-30 11:41 | P.DS ---
Providers Date of admission: 05/27/20 23:17 Attending physician: Clotilde Wong Consults: 05/28/20 00:29 Consult Physician Routine Consulting Provider: Frederick Eddy Consult Reason/Comments: abdominal ascites Do you want consulting provider notified?: Yes, Notify in am Primary care physician: Stated None Hospital Course: Diagnoses: Alcoholic liver cirrhosis with anasarca Portal hypertension with splenomegaly Left apical pulmonary nodule of 0.7 x 0.6 x 1 cm Right pleural effusion, loculated 6 cm right thyroid nodule Chronic kidney disease, stage III diabetic neuropathy Hospital course: This is a pleasant 69 years old male with past medical history of diabetes mellitus, bilateral lower extremity DVT anticoagulation, his doctor asked him to stop coumadin for low platelet count since 2016, and alcoholic liver cirrhosis Patient was transferred from [facility]. Initially he presents because of worsening dyspnea and coughing with increase in abdominal distention and bilateral leg swelling Patient went to see his PCP Dr. Carrizales who referred him to the hospital, patient found to have anasarca secondary to his liver cirrhosis, however abdominal and chest ultrasounds showed no enough fluid to be aspirated. Patient has been evaluated by mutuel clerk and he was treated with intravenous Lasix, patient shows significant interval improvement, and on the day of discharge she has no dyspnea and no chest pain. Abdominal distention significantly improved as well as his leg swelling, patient has been evaluated by physical therapist and recommended home with no need for therapy his weight is significantly improved from 93 kg down to 86.5 kg and today is 84.9 kg Also patient found to have right pulmonary nodule and right thyroid nodule Risks including but not limited to cancer are explained for the patient and he verbalized understanding and acceptance, patient was referred to stamps or coins salesperson and aircraft structural repair mechanic as an outpatient Patient has been cleared for discharge by mutuel clerk Patient will be discharged on diuretics with recommendation on the same home dose Problems and management plan were discussed with the patient and he verbalized understanding and acceptance Patient was found stable and can be discharged home however he needs follow-up as an outpatient. Patient was instructed to follow up with PCP within one week and patient agrees Patient agrees with the appointments made for him withhis PCP on 06/05, with Dr. Lopez stamps or coins salesperson on 06/[address] Moreno the mutuel clerk on 07/24, patient agrees to make his own appointment with Dr. Jamison aircraft structural repair mechanic. Gen: patient is a AAOx3, no distress CVS: S1-S2, RRR, no murmur Lungs: B/L CTA, no wheezing Abdomen: soft, no distention, no tenderness, positive bowel sounds -Extremity: Mild bilateral leg edema. No induration Time spent more than 35 minutes Plan - Discharge Summary Discharge Rx Participant: No New Discharge Prescriptions: New Folic Acid 1 mg PO DAILY@1200 #21 tab Multivitamins, Thera [Multivitamin (formulary)] 1 each PO DAILY@1200 #21 tab Thiamine [Vitamin B-1] 100 mg PO DAILY@1200 #21 tab Continue Lisinopril 20 mg PO HS metFORMIN HCL 500 mg PO BID Spironolactone [Aldactone] 50 mg PO BID 30 Days #60 tab Furosemide [Lasix] 40 mg PO BID 30 Days #60 tablet Discontinued Sulfamethox-Tmp 800-160Mg [Bactrim DS 800-160 mg] 1 tab PO Q12H predniSONE [Deltasone] 40 mg PO DAILY Discharge Medication List Lisinopril 20 mg PO HS 01/15/20 [History] metFORMIN HCL 500 mg PO BID 01/15/20 [History] Furosemide [Lasix] 40 mg PO BID 30 Days #60 tablet 01/18/20 [Rx] Spironolactone [Aldactone] 50 mg PO BID 30 Days #60 tab 01/18/20 [Rx] Folic Acid 1 mg PO DAILY@1200 #21 tab 05/30/20 [Rx] Multivitamins, Thera [Multivitamin (formulary)] 1 each PO DAILY@1200 #21 tab 05/30/20 [Rx] Thiamine [Vitamin B-1] 100 mg PO DAILY@1200 #21 tab 05/30/20 [Rx] Follow up Appointment(s)/Referral(s): Sofie Tirado NPC [REFERRING] - 06/05/20 8:30 am Ghulam Rizvi MD [REFERRING] - 10 Days (Public Health Advisor, for your right thyroid nodule office closed. Please call to make appointment) Kimberly Moreno MD [STAFF PHYSICIAN] - 07/24/20 2:15 pm ([place] office) Marky Lopez DO [Doctor of Osteopathic Medicine] - 06/18/20 3:00 pm (Quarter Backer, for your Left apical pulmonary nodule With Ivet [place]) Activity/Diet/Wound Care/Special Instructions: Sodium restricted diet Activity is limited till you see your doctor
[2020-05-30 11:54] LABS: Glucose,Whole Blood 107 mg/dL (75-99)
[2020-05-30] MEDS ORDERED: FUROSEMIDE 40 MG TAB PO SCH (16:00)
== END 2020-05-30 14:37 | disposition home or self-care (01) | DRG 433 ==
LOC: 4SSUR 23:17
PROVIDERS: ADMIT Internal Medicine; ATTEND Internal Medicine
DX: K70.31 Alcoholic cirrhosis of liver with ascites (principal); D61.818 Other pancytopenia; K76.6 Portal hypertension; J90 Pleural effusion, not elsewhere classified; E11.22 Type 2 diabetes mellitus with diabetic chronic kidney disease; N18.3 Chronic kidney disease, stage 3 (moderate); E04.1 Nontoxic single thyroid nodule; R91.1 Solitary pulmonary nodule; R16.1 Splenomegaly, not elsewhere classified; E11.40 Type 2 diabetes mellitus with diabetic neuropathy, unspecified; E87.70 Fluid overload, unspecified; Z86.718 Personal history of other venous thrombosis and embolism; Z79.899 Other long term (current) drug therapy; Z79.84 Long term (current) use of oral hypoglycemic drugs; Z91.19 Patient's noncompliance with other medical treatment and regimen
CPT/HCPCS: 76604; 76705; 80053; 82140; 82607; 82746; 83735; 85025; 85610